=== PATIENT | male | born 1960 | race Caucasian/White ===

== ENCOUNTER 2017-01-06 09:05 | Outpatient (CLI) ==
--- NOTE | 2017-01-06 09:59 | CT ---
EXAM: CT of the chest without contrast History: Follow-up pulmonary nodules. Comparison: Chest CT 09/18/2016 Technique: Multiplanar CT images through the thorax were obtained without the administration of IV contrast Findings: Heart size is normal. No pericardial effusion. 1.1 cm pretracheal mediastinal lymph node is more noticeable compared to the prior study. Multiple calcified granulomas again seen within the thorax. 1 cm spiculated nodule within the right upper lobe is more noticeable. Mild emphysema again noted. No consolidation. No pleural fluid and no pneumothorax. Within the visualized upper abdomen, status post cholecystectomy. No acute osseous abnormalities. Impression: 1. More prominent 1 cm spiculated right upper lobe lung nodule is indeterminate. Recommend further evaluation with PET CT. 2. More noticeable mildly enlarged pretracheal mediastinal lymph node is indeterminate. This could also be further evaluated with PET CT. 3. Mild emphysema.
== END 2017-01-06 09:06 | disposition home or self-care (01) ==
LOC: RAD 09:05
PROVIDERS: ATTEND General Practice
DX: R91.1 Solitary pulmonary nodule (principal)